=== PATIENT | female | born 1990 | race Caucasian/White ===

== ENCOUNTER 2018-05-05 09:37 | Emergency (ER) | payer OTHER ==
[~2018-05-05] VITALS: Ht 149.9 cm; Wt 47.2 kg
[2018-05-05 10:29] VITALS: BP 120/62
== END 2018-05-05 10:29 | disposition home or self-care (01) ==
LOC: ER 09:37
DX: T19.2XXA Foreign body in vulva and vagina, initial encounter (principal); W45.8XXA Other foreign body or object entering through skin, initial encounter